=== PATIENT | male | born 1985 | race Caucasian/White ===

== ENCOUNTER 2018-08-12 07:56 | Emergency (ER) | payer BC ==
[2018-08-12 08:27] VITALS: BP 119/78
--- NOTE | 2018-08-12 08:40 | UC ---
Ear Complaint HPI - HPI Summary HPI Summary: 33-year-old male comes in with a chief complaint of left ear pain. He's had a sore throat for several days. Now is having left ear pain. No fevers or chills. Minimal rhinorrhea. Sore throat is mild to moderate. Pain is worse when he swallows. Has not tried any [id number] medications. No chest congestion or shortness of breath. - History of Current Complaint Chief Complaint: UCGeneralIllness Stated Complaint: EAR PAIN Time Seen by Provider: 08/12/18 08:13 Pain Intensity: 4 - Allergies/Home Medications Allergies/Adverse Reactions: Allergies Allergy/AdvReac Type Severity Reaction Status Date / Time No Known Allergies Allergy Verified 08/12/18 08:27 Home Medications: Home Medications Acetaminophen/Dextromethorphan [Cold & Cough Daytime 1000-30 mg/30Ml] 1 liq PO 08/12/18 [History] Fluticasone NASAL SPRAY 50MCG* [Flonase NASAL SPRAY 50MCG*] 2 spray BOTH NARES DAILY 08/12/18 [History Confirmed 08/12/18] PMH/Surg Hx/FS Hx/Imm Hx Previously Healthy: Yes - Surgical History Surgical History: Yes Surgery Procedure, Year, and Place: appendectomy. gall bladder - Family History Known Family History: Positive: Non-Contributory - Social History Alcohol Use: None Substance Use Type: None Smoking Status (MU): Former Smoker Type: Cigarettes When Did the Patient Quit Smoking/Using Tobacco: Mar 2008 Review of Systems All Other Systems Reviewed And Are Negative: Yes Constitutional: Positive: Negative Skin: Positive: Negative Eyes: Positive: Negative ENT: Positive: Sore Throat, Ear Ache, Nasal Discharge Respiratory: Positive: Negative Cardiovascular: Positive: Negative Gastrointestinal: Positive: Negative Motor: Positive: Negative Neurovascular: Positive: Negative Musculoskeletal: Positive: Negative Neurological: Positive: Negative Psychological: Positive: Negative Is Patient Immunocompromised?: No Physical Exam Triage Information Reviewed: Yes Appearance: Well-Appearing, No Pain Distress, Well-Nourished Vital Signs: Initial Vital Signs Temp 97 F 08/12/18 08:22 Pulse 67 08/12/18 08:22 Resp 14 08/12/18 08:22 BP 119/78 08/12/18 08:22 Pulse Ox 99 08/12/18 08:22 Vital Signs Reviewed: Yes Eye Exam: Normal Eyes: Positive: Conjunctiva Clear ENT: Positive: Pharyngeal erythema, Nasal congestion, TM bulging - left Neck exam: Normal Neck: Positive: Supple Respiratory: Positive: Lungs clear, Normal breath sounds, No respiratory distress Cardiovascular: Positive: RRR Musculoskeletal Exam: Normal Musculoskeletal: Positive: Strength Intact, ROM Intact Neurological: Positive: Alert, Muscle Tone Normal Psychological Exam: Normal Psychological: Positive: Age Appropriate Behavior Skin Exam: Normal Ear Complaint Course/Dx - Course Course Of Treatment: DISCUSSED VIRAL VERSES BACTERIAL INFECTION AND THE ROLE OF ANTIBIOTICS. THE PATIENT WISHES TO BE ON ANTIBIOTICS AT THIS TIME. - Differential Dx/Diagnosis Provider Diagnosis: Left otitis externa Discharge - Sign-Out/Discharge Documenting (check all that apply): Patient Departure All imaging exams completed and their final reports reviewed: No Studies - Discharge Plan Condition: Stable Disposition: HOME Prescriptions: Amoxicillin PO (*) [Amoxicillin 875 MG (*)] 875 mg PO BID #20 tab Patient Education Materials: Serous Otitis Media (ED) Referrals: [facility] [Outside] Additional Instructions: FOLLOW UP WITH YOUR DOCTOR IF NOT COMPLETELY IMPROVED. GET RECHECKED FOR ANY WORSENING OF YOUR CONDITION OR QUESTIONS OR CONCERNS. - Billing Disposition and Condition Condition: STABLE Disposition: Home
== END 2018-08-12 08:44 | disposition home or self-care (01) ==
LOC: UCEAST 07:56
DX: H60.92 Unspecified otitis externa, left ear (principal); J02.9 Acute pharyngitis, unspecified; Z87.891 Personal history of nicotine dependence
CPT/HCPCS: 99202; G0463

== ENCOUNTER 2019-05-11 09:57 | Emergency (ER) | payer BC ==
[2019-05-11 10:04] VITALS: BP 139/91
--- NOTE | 2019-05-11 10:15 | UC ---
Back Pain HPI - HPI Summary HPI Summary: 10 year history of occasional episodes of low back pain---usually treats well with lidoderm patch and aleeve---pain is not any better---and has good effect with indomethacin and flexeril--no numbness or tingling and neurodeficits - History of Current Complaint Chief Complaint: UCBackPain Stated Complaint: BACK PAIN Time Seen by Provider: 05/11/19 10:08 Hx Obtained From: Patient Onset/Duration: Sudden Onset, Lasting Days Timing: Constant Pain Intensity: 6 Pain Scale Used: 0-10 Numeric Back Pain: Is Discrete @ - lumber back Character: Aching, Throbbing, Spasmodic, Stiffness Aggravating Factor(s): Movement Alleviating Factor(s): Nothing Associated Signs And Symptoms: Positive: Negative Related History: Similar Episode Dx As - disc disease, Previous Back Injury - Allergies/Home Medications Allergies/Adverse Reactions: Allergies Allergy/AdvReac Type Severity Reaction Status Date / Time No Known Allergies Allergy Verified 05/11/19 10:04 PMH/Surg Hx/FS Hx/Imm Hx Previously Healthy: Yes - Surgical History Surgical History: Yes Surgery Procedure, Year, and Place: appendectomy. gall bladder - Family History Known Family History: Positive: Non-Contributory - Social History Occupation: Employed Full-time Lives: With Family Alcohol Use: None Substance Use Type: None Smoking Status (MU): Former Smoker Type: Cigarettes When Did the Patient Quit Smoking/Using Tobacco: Mar 2008 Review of Systems All Other Systems Reviewed And Are Negative: Yes Constitutional: Positive: Negative Skin: Positive: Negative Eyes: Positive: Negative ENT: Positive: Negative Respiratory: Positive: Negative Cardiovascular: Positive: Negative Gastrointestinal: Positive: Negative Genitourinary: Positive: Negative Motor: Positive: Decreased ROM - lumbar spine Neurovascular: Positive: Negative Musculoskeletal: Positive: Arthralgia - low back/lumbar spine Neurological: Positive: Negative Psychological: Positive: Negative Is Patient Immunocompromised?: No Physical Exam Triage Information Reviewed: Yes Appearance: Well-Appearing, Well-Nourished, Pain Distress Vital Signs: Initial Vital Signs Temp 98.4 F 05/11/19 09:58 Pulse 85 05/11/19 09:58 Resp 16 05/11/19 09:58 BP 139/91 05/11/19 09:58 Pulse Ox 100 05/11/19 09:58 Vital Signs Reviewed: Yes Eye Exam: Normal Eyes: Positive: Conjunctiva Clear ENT Exam: Normal ENT: Positive: Normal ENT inspection, Hearing grossly normal. Negative: Trismus , Muffled voice, Hoarse voice Dental Exam: Normal Neck exam: Normal Neck: Positive: Supple, Nontender Respiratory Exam: Normal Respiratory: Positive: Chest non-tender, No respiratory distress, No accessory muscle use Cardiovascular Exam: Normal Cardiovascular: Positive: RRR, Pulses Normal, Brisk Capillary Refill Musculoskeletal Exam: Other Musculoskeletal: Positive: Strength Intact, No Edema, ROM Limited @ - lumbar spine Neurological Exam: Normal Neurological: Positive: Alert, Muscle Tone Normal Psychological Exam: Normal Skin Exam: Normal Back Pain Course/Dx - Course Course Of Treatment: continue lidoderm patch, prednisone and flexeril, low back and core strength exercises provided--patient to follow with pcp prn - Differential Dx/Diagnosis Provider Diagnosis: Low back strain Discharge ED - Sign-Out/Discharge Documenting (check all that apply): Patient Departure All imaging exams completed and their final reports reviewed: No Studies - Discharge Plan Condition: Stable Disposition: HOME Prescriptions: Cyclobenzaprine TAB* [Flexeril 10 MG TAB*] 10 mg PO TID PRN #30 tab PRN Reason: muscle spasm predniSONE TAB* [Deltasone TAB*] 50 mg PO DAILY #5 tab Patient Education Materials: Muscle Spasm (ED), Core Strengthening Exercises ( GEN), Lower Back Exercises (ED) Referrals: Sylvester Reed MD [Primary Care Provider] - If Needed - Billing Disposition and Condition Condition: STABLE Disposition: Home
== END 2019-05-11 10:30 | disposition home or self-care (01) ==
LOC: UCEAST 09:57
DX: S39.012A Strain of muscle, fascia and tendon of lower back, initial encounter (principal); Z87.891 Personal history of nicotine dependence; X58.XXXA Exposure to other specified factors, initial encounter; Y92.9 Unspecified place or not applicable
CPT/HCPCS: 99212; G0463

== ENCOUNTER 2019-07-23 07:54 | Emergency (ER) | payer BC ==
[2019-07-23 08:07] VITALS: BP 116/84
--- NOTE | 2019-07-23 08:22 | UC ---
General HPI - HPI Summary HPI Summary: States 4 days ago began with a cough, 3 days ago started with a fever. Woke at 3 am with sweats/chills, assumed fever had broke. Clinically feeling better but on way to work was also having sweats and feeling like another fever broke. Productive cough and feels sore but overall feels better. No N/V/D. Is resting, drinking fluids and OTC meds. No inhaler use in the past. Remote smoker Meds: REviewed - History of Current Complaint Chief Complaint: UCGeneralIllness Stated Complaint: FEVER CHEST CONGESTION COUGH Time Seen by Provider: 07/23/19 08:11 Pain Intensity: 0 - Allergy/Home Medications Allergies/Adverse Reactions: Allergies Allergy/AdvReac Type Severity Reaction Status Date / Time No Known Allergies Allergy Verified 05/11/19 10:04 PMH/Surg Hx/FS Hx/Imm Hx Previously Healthy: Yes - Surgical History Surgical History: Yes Surgery Procedure, Year, and Place: appendectomy. gall bladder - Family History Known Family History: Positive: Non-Contributory - Social History Alcohol Use: None Substance Use Type: Marijuana Substance Use Comment - Amount & Last Used: occasionally Smoking Status (MU): Former Smoker Type: Cigarettes When Did the Patient Quit Smoking/Using Tobacco: Mar 2008 Review of Systems All Other Systems Reviewed And Are Negative: Yes Constitutional: Positive: Fever, Chills Respiratory: Positive: Cough Physical Exam Triage Information Reviewed: Yes Appearance: Well-Appearing Vital Signs: Initial Vital Signs Temp 97.4 F 07/23/19 08:02 Pulse 105 07/23/19 08:02 Resp 18 07/23/19 08:02 BP 116/84 07/23/19 08:02 Pulse Ox 100 07/23/19 08:02 Vital Signs Reviewed: Yes ENT: Positive: Pharyngeal erythema, Nasal congestion Neck: Positive: Supple, Nontender Respiratory: Positive: Lungs clear, Normal breath sounds, No respiratory distress Cardiovascular: Positive: RRR, No Murmur Abdomen Description: Positive: Soft Course/Dx - Course Course Of Treatment: This is a 34 yr old with fever and cough Clinically improving Plan Continue supportive care as you are doing Rest, fluids, tylenol and/or ibuprofen as needed as directed for fever/pain If fever persists and symptoms persist or worsen, recommend follow up with PCP or return to urgent care - Diagnoses Provider Diagnosis: Viral syndrome Discharge ED - Sign-Out/Discharge Documenting (check all that apply): Patient Departure All imaging exams completed and their final reports reviewed: No Studies - Discharge Plan Condition: Good Disposition: HOME Patient Education Materials: Viral Syndrome (ED) Referrals: Sylvester Reed MD [Primary Care Provider] - Additional Instructions: Continue supportive care as you are doing Rest, fluids, tylenol and/or ibuprofen as needed as directed for fever/pain If fever persists and symptoms persist or worsen, recommend follow up with PCP or return to urgent care - Billing Disposition and Condition Condition: GOOD Disposition: Home
== END 2019-07-23 08:38 | disposition home or self-care (01) ==
LOC: UCEAST 07:54
DX: B34.9 Viral infection, unspecified (principal); R05 Cough; Z87.891 Personal history of nicotine dependence
CPT/HCPCS: 99211; G0463